=== PATIENT | male | born 2000 | race Caucasian/White ===

== ENCOUNTER 2021-05-28 15:24 | Emergency (ER) | payer OTHER ==
[~2021-05-28] VITALS: Ht 180.3 cm; Wt 90.7 kg
== END 2021-05-28 17:15 | disposition home or self-care (01) ==
LOC: ED 15:24
DX: T50.901A Poisoning by unspecified drugs, medicaments and biological substances, accidental (unintentional), initial encounter (principal); R25.8 Other abnormal involuntary movements
CPT/HCPCS: 96374; 99284-25; J1200; J7040